=== PATIENT | female | born 1980 | race African-American/Black ===

== ENCOUNTER 2017-03-11 16:10 | Emergency (ER) | payer OTHER, MEDICAID ==
[~2017-03-11 16:10] MED LIST: ALBUTEROL17 GM INH; H PO; NO HOME MEDS; NO MEDS; NORCO 5/325 TAB1 TAB PO; TYLENOL W/CODEI1 TAB PO; VICODIN 5/500 T1 TAB PO
[2017-04-17] MEDS ORDERED: COMPAZINE10 MG PO (10:04)
== END 2017-03-11 17:14 ==
LOC: EDMED 16:10
PROC: 0HQFXZZ Repair Right Hand Skin, External Approach (ICD-10-PCS; principal; 2017-03-11)
DX: S61.214A Laceration without foreign body of right ring finger without damage to nail, initial encounter (principal); Z23 Encounter for immunization; F17.200 Nicotine dependence, unspecified, uncomplicated; W45.8XXA Other foreign body or object entering through skin, initial encounter; Y93.89 Activity, other specified; Y92.69 Other specified industrial and construction area as the place of occurrence of the external cause; Y99.0 Civilian activity done for income or pay